=== PATIENT | male | born 2000 | race Hispanic/Latino ===

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

== ENCOUNTER 2018-01-10 00:10 | Inpatient (IN) | payer OTHER ==
[2018-01-10 00:11] VITALS: BMI 19.0
--- NOTE | 2018-01-10 00:42 | ED PDOC ---
HPI: Psych/Substance Abuse Time Seen by Provider: 01/10/18 00:16 Chief Complaint (Nursing): Psychiatric Evaluation Chief Complaint (Provider): crisis eval History Per: Patient, EMS History/Exam Limitations: clinical condition Onset/Duration Of Symptoms: Days, Waxing/Waning Current Symptoms Are (Timing): Still Present Additional Complaint(s): 17 y/o male brought in by EMS for crisis evaluation. Patient states he is here due to "depression and suicidal thoughts". Patient states he has a plan, but does not wish to say what it is. As per EMS, patient flagged down parking authority to ask them for help, who then called EMS. Denies homicidal ideations , hallucinations, acute medical complaints. Past Medical History Reviewed: Historical Data, Nursing Documentation, Vital Signs Vital Signs: Last Vital Signs Temp 97.8 F 01/10/18 00:12 Pulse 81 01/10/18 00:12 Resp 16 01/10/18 00:12 BP 112/76 01/10/18 00:12 Pulse Ox 99 01/10/18 00:12 - Medical History PMH: Anxiety, Depression Denies: Diabetes, Hepatitis, HIV, HTN, Seizures, Sexually Transmitted Disease - Surgical History Surgical History: No Surg Hx - Family History Family History: States: Unknown Family Hx - Immunization History Hx Tetanus Toxoid Vaccination: No - Home Medications Home Medications: Ambulatory Orders Medication Instructions Recorded ARIPiprazole [Abilify] 5 mg PO DAILY #30 tab 07/05/17 Amoxicillin/Clavulanate [Augmentin 1 tab PO BID #14 tab 07/05/17 875 MG-125 MG] Escitalopram [Lexapro] 5 mg PO DAILY #30 tab 07/05/17 Fluticasone Propionate [Flonase] 1 spr LISA BID #1 bottle 07/05/17 Methylprednisolone [Medrol Dose 4 mg PO DAILY #21 mg 07/05/17 Pack (21 tabs)] Ibuprofen [Motrin] 600 mg PO Q6H PRN #20 tab 12/11/17 Dicyclomine [Bentyl] 20 mg PO BID #30 tab 12/12/17 - Allergies Allergies/Adverse Reactions: Allergies Allergy/AdvReac Type Severity Reaction Status Date / Time No Known Allergies Allergy Verified 01/10/18 00:12 Review of Systems ROS Statement: Except As Marked, All Systems Reviewed And Found Negative Psych: Positive for: Depression, Suicidal ideation Physical Exam - Reviewed Nursing Documentation Reviewed: Yes Vital Signs Reviewed: Yes - Physical Exam Appears: Positive for: Well, Non-toxic, No Acute Distress Head Exam: Positive for: ATRAUMATIC, NORMAL INSPECTION, NORMOCEPHALIC Skin: Positive for: Normal Color Eye Exam: Positive for: Normal appearance ENT: Positive for: Normal ENT Inspection Cardiovascular/Chest: Positive for: Regular Rate, Rhythm Respiratory: Positive for: Normal Breath Sounds Gastrointestinal/Abdominal: Positive for: Normal Exam Back: Positive for: Normal Inspection Extremity: Positive for: Normal ROM Neurologic/Psych: Positive for: Alert, Oriented, Mood/Affect (flat/withdrawn) - Laboratory Results Result Diagrams: 01/10/18 01:07 01/10/18 01:07 - ECG O2 Sat by Pulse Oximetry: 99 - Progress ED Course And Treament: labs, urine, 1:1, crisis eval Patient evaluated by transit survey worker; to be admitted as per Dr. Dorman Medical Decision Making Medical Decision Making: Patient medically stable for psych admission Disposition - Clinical Impression Clinical Impression: Depression - Patient ED Disposition Is Patient to be Admitted: Yes - Disposition Disposition Time: 01:25 Condition: STABLE
[2018-01-10 01:21] LABS: BASO % 0.6 % (0.0-2.0); EOS # 0.2 K/uL (0.0-0.7); EOS % 2.7 % (0.0-4.0); HEMOGLOBIN 14.3 g/dL (12.0-18.0); LYMPH # 1.9 K/uL (1.0-4.3); LYMPH % 28.9 % (20.0-40.0); MEAN CELL VOLUME 84.3 fl (80.0-94.0); MEAN CORPUSCULAR HEMOGLOBIN 28.4 pg (27.0-31.0); MEAN CORPUSCULAR HGB CONC 33.7 g/dL (33.0-37.0); MEAN PLATELET VOLUME 7.1 fl (7.2-11.7); MONO # 0.5 K/uL (0.0-0.8); MONO % 7.3 % (0.0-10.0); NEUT % 60.5 % (50.0-75.0); RBC 5.03 Mil/uL (4.40-5.90); RED CELL DISTRIBUTION WIDTH 12.9 % (11.5-14.5); WHITE BLOOD COUNT 6.6 K/uL (4.8-10.8)
[2018-01-10 01:33] LABS: BLOOD UREA NITROGEN 21 mg/dl (9-20); CALCIUM 9.1 mg/dL (8.4-10.2); GFR AFRICAN-AMERICAN > 60; GFR NON-AFRICAN AMERICAN > 60
[2018-01-10 01:34] LABS: ALB/GLOB RATIO 1.3 (1.0-2.1); ALT/SGPT 38 U/L (21-72); AST/SGOT 21 U/L (17-59)
[2018-01-10 03:35] LABS: URINE BACTERIA RARE (<OCC); URINE BILIRUBIN NEGATIVE (NEGATIVE); URINE BLOOD NEGATIVE (NEGATIVE); URINE CLARITY CLOUDY (Clear); URINE COLOR YELLOW (YELLOW); URINE GLUCOSE (UA) NEG (Normal); URINE LEUKOCYTE ESTERASE NEG Leu/uL (Negative); URINE PROTEIN NEGATIVE (NEGATIVE); URINE UROBILINOGEN 0.2-1.0 mg/dL (0.2-1.0)
[2018-01-10 03:52] LABS: BARBITURATES, UR NEGATIVE (NEGATIVE); BENZODIAZEPINES, UR NEGATIVE (NEGATIVE); OPIATES, UR NEGATIVE (NEGATIVE); PHENCYCLIDINE, UR NEGATIVE (NEGATIVE)
[2018-01-10 04:18] VITALS: O2SAT 100
[2018-01-10] MEDS ORDERED: DiphenhydrAMINE 50 mg/ml Inj IM PRN (04:37)
[2018-01-10] MEDS ORDERED: Magnesium Hydroxide Susp 30 ml UD PO PRN (04:37)
[2018-01-10] MEDS ORDERED: Alum-Mag Hydrox-Simethicone Susp (30 mL) PO PRN (04:37)
--- NOTE | 2018-01-10 05:34 | PCM.BM ---
<Eusebia Mcdowell - Last Filed: 01/10/18 05:32> Treatment Plan Problems - Problems identified on initial assessmt Hopelessness/Helplessness Date Initiated: 01/10/18 Time Initiated: 04:30 Assessment reference: NA Treatment assets and liabiliti Patient Assests: adapts well, self-reliant, ADL independent, good support system Patient Liabilities: relationship conflicts - Milieu Protocol Maintain good personal hygiene: daily Encourage regular showers, daily Remind patient to perform daily oral care, daily Assist patient to perform ADL's Maintain personal safety: every shift Educate patient to report safety concerns to staff, every shift Monitor environment for contraband/sharps Medication safety: Monitor for expected outcome, potential side effects: every shift, Assess barriers to learning: every shift, Assess readiness for medication education: every shift Family Contact Family involvement: Famliy/SO not involved <Kiersten Mack - Last Filed: 01/11/18 15:24> Treatment assets and liabiliti Patient Assests: adapts well, cooperative, self-reliant, ADL independent, physically healthy, good support system, negotiates basic needs Patient Liabilities: relationship conflicts, other (poor insight, hx of noncompliance) Family Contact Family involvement: Family/SO is involved Family contact: Patient declines to allow family contact at present - Outside Agency Agency 1 Care involvment: Other (will refer upon stabilization for OPS) Agency contact name: [facility] Agency contact number: [phone] - Goals for Treatment Patient goals for treatment: Patient to continue stabilization on 3NP through medication management and group/supportive therapy to address sxs of depression and eliminate SI. Patient to be encouraged to attend groups regularly to promote self-awareness, compliance and improve insight, organization, coping skills and self-esteem. Patient to be provided with referral for appropriate level of aftercare to reduce risk of future hospitalizations and ensure safety in the community. Discharge/Continuing Care - Education Needs Education Needs: Patient Medication, Patient Coping Skills, Patient Anger Management skills, Patient Community resources, Patient Aftercare Safety Plan - Discharge Discharge Criteria: Tolerates medication w/o severe side effects, Free of Suicidal thoughts, Normal sleep pattern, Ability to care for self, Reduction of target symptoms Discharge to:: Home, With Family, Other (OPS) <Javier Rice - Last Filed: 01/12/18 11:47> Discharge/Continuing Care - Treatment Team Participation Patient/Family/SO Statement: 01/12/18 11:47 Pt was seen in treatment team and reported that he was "fine." Dr. Quinones explained to pt that she is switching his Abilify to Wellbutrin and Risperdal as pt reported side effects. Pt admitted to still experiencing hearing "sounds" that were not real. Pt spoke to team with his blanket covering his mouth and it was difficult to hear pt at times. Pt gave limited responses preventing team to properly evaluate pt's mood and level of insight. It was also decided and discussed that pt would be re-referred to [facility] for outpatient treatment. Discussed with Family/SO: No Was Patient/Family/SO present at Treatment Team Meeting: Yes <Naima Quinones - Last Filed: 01/19/18 09:10> - Diagnosis (1) Depression Status: Acute Interventions: psychotherapy, pharmacotherapy 01/19/18 09:10
[2018-01-10 08:39] LABS: T4 8.38 ug/dl (5.5-11.0)
--- NOTE | 2018-01-10 14:22 | CP.PCM.CON ---
History of Present Illness - History of Present Illness History of Present Illness: Reason for Consult: per hospital protocol HPI: 17 year old male no past medical history is admitted to psych for depression. No other complaints at this time. HD stable. ROS: per hPI all other systems reviewed and neg PMSH: denies FH: denies SH: denies tobacco etoh, ivdu Past Patient History - Tetanus Immunizations Tetanus Immunization: Unknown - Past Social History Smoking Status: Never Smoked - CARDIAC Hx Cardiac Disorders: No - PULMONARY Hx Respiratory Disorders: No Hx Tuberculosis: No - NEUROLOGICAL Hx Neurological Disorder: No Hx Seizures: No - HEENT Hx HEENT Problems: No - RENAL Hx Chronic Kidney Disease: No - ENDOCRINE/METABOLIC Hx Endocrine Disorders: No - HEMATOLOGICAL/ONCOLOGICAL Hx Blood Disorders: No Hx Human Immunodeficiency Virus (HIV): No - INTEGUMENTARY Hx Dermatological Problems: No - MUSCULOSKELETAL/RHEUMATOLOGICAL Hx Musculoskeletal Disorders: No Hx Falls: No - GASTROINTESTINAL Hx Gastrointestinal Disorders: No - GENITOURINARY/GYNECOLOGICAL Hx Genitourinary Disorders: No Hx Sexually Transmitted Disorders: No - PSYCHIATRIC Hx Anxiety: Yes Hx Depression: Yes Hx Substance Use: No - SURGICAL HISTORY Hx Surgeries: No - ANESTHESIA Hx Anesthesia: No Meds Allergies/Adverse Reactions: Allergies Allergy/AdvReac Type Severity Reaction Status Date / Time No Known Allergies Allergy Verified 01/10/18 00:12 - Medications Medications: Current Medications Acetaminophen (Tylenol 325mg Tab) 650 mg PO Q4 PRN PRN Reason: Pain, moderate (4-7) Al Hydrox/Mg Hydrox/Simethicone (Maalox Plus 30 Ml) 30 ml PO Q4 PRN PRN Reason: Dyspepsia Diphenhydramine HCl (Benadryl) 50 mg IM Q6 PRN PRN Reason: Extrapyramidal S/S Unable PO Diphenhydramine HCl (Benadryl) 50 mg PO Q6 PRN PRN Reason: Extrapyramidal Symptoms Haloperidol (Haldol) 5 mg PO Q4 PRN PRN Reason: Agitation Haloperidol Lactate (Haldol) 5 mg IM Q4 PRN PRN Reason: Agitation, Unable to Take PO Lorazepam (Ativan) 2 mg IM Q4 PRN PRN Reason: Anxiety/Agitation,Unable PO Lorazepam (Ativan) 2 mg PO Q4 PRN PRN Reason: Anxiety/Agitation Magnesium Hydroxide (Milk Of Magnesia) 30 ml PO HS PRN PRN Reason: Constipation Physical Exam - Constitutional Appears: Non-toxic, No Acute Distress - Head Exam Head Exam: ATRAUMATIC, NORMOCEPHALIC - Eye Exam Eye Exam: EOMI, Normal appearance, PERRL - ENT Exam ENT Exam: Mucous Membranes Moist, Normal Exam - Neck Exam Neck exam: Positive for: Normal Inspection - Respiratory Exam Respiratory Exam: Clear to Auscultation Bilateral, NORMAL BREATHING PATTERN - Cardiovascular Exam Cardiovascular Exam: REGULAR RHYTHM, +S1, +S2 - GI/Abdominal Exam GI & Abdominal Exam: Normal Bowel Sounds, Soft. absent: Tenderness - Extremities Exam Extremities exam: Positive for: normal capillary refill, normal inspection - Back Exam Back exam: absent: CVA tenderness (L), CVA tenderness (R) - Neurological Exam Neurological exam: Alert, Oriented x3 - Psychiatric Exam Psychiatric exam: Normal Affect, Normal Mood - Skin Skin Exam: Dry, Warm Results - Vital Signs Recent Vital Signs: Last Vital Signs Temp 97.7 F 01/10/18 09:00 Pulse 71 01/10/18 09:00 Resp 18 01/10/18 09:00 BP 122/72 01/10/18 09:00 Pulse Ox 100 01/10/18 04:15 - Labs Result Diagrams: 01/10/18 01:07 01/10/18 01:07 Labs: Laboratory Results - last 24 hr 01/10/18 01/10/18 01/10/18 01:07 01:07 03:05 WBC 6.6 RBC 5.03 Hgb 14.3 Hct 42.4 MCV 84.3 MCH 28.4 MCHC 33.7 RDW 12.9 Plt Count 292 MPV 7.1 L Neut % (Auto) 60.5 Lymph % (Auto) 28.9 [place] % (Auto) 7.3 Eos % (Auto) 2.7 Baso % (Auto) 0.6 Neut # (Auto) 4.0 Lymph # (Auto) 1.9 [place] # (Auto) 0.5 Eos # (Auto) 0.2 Baso # (Auto) 0.0 Sodium 143 Potassium 4.0 Chloride 99 Carbon Dioxide 29 Anion Gap 19 BUN 21 H Creatinine 0.8 Est GFR ( Amer) > 60 Est GFR (Non-Af Amer) > 60 Random Glucose 87 Hemoglobin A1c Calcium 9.1 Total Bilirubin 0.3 AST 21 ALT 38 Alkaline Phosphatase 68 Total Protein 7.2 Albumin 4.0 Globulin 3.2 Albumin/Globulin Ratio 1.3 Triglycerides Cholesterol LDL Cholesterol Direct HDL Cholesterol Thyroxine (T4) TSH 3rd Generation Urine Color Urine Clarity Urine pH Ur Specific [place] Urine Protein Urine Glucose (UA) Urine Ketones Urine Blood Urine Nitrate Urine Bilirubin Urine Urobilinogen Ur Leukocyte Esterase Urine RBC (Auto) Urine Microscopic WBC Urine Bacteria Urine Opiates Screen Negative Urine Methadone Screen Negative Ur Barbiturates Screen Negative Ur Phencyclidine Scrn Negative Ur Amphetamines Screen Negative U Benzodiazepines Scrn Negative U Oth Cocaine Metabols Negative U Cannabinoids Screen Negative Alcohol, Quantitative < 10 01/10/18 01/10/18 01/10/18 03:05 07:44 07:44 WBC RBC Hgb Hct MCV MCH MCHC RDW Plt Count MPV Neut % (Auto) Lymph % (Auto) [place] % (Auto) Eos % (Auto) Baso % (Auto) Neut # (Auto) Lymph # (Auto) [place] # (Auto) Eos # (Auto) Baso # (Auto) Sodium Potassium Chloride Carbon Dioxide Anion Gap BUN Creatinine Est GFR ( Amer) Est GFR (Non-Af Amer) Random Glucose Hemoglobin A1c 5.7 Calcium Total Bilirubin AST ALT Alkaline Phosphatase Total Protein Albumin Globulin Albumin/Globulin Ratio Triglycerides 108 D Cholesterol 102 LDL Cholesterol Direct 49 HDL Cholesterol 32 Thyroxine (T4) 8.38 TSH 3rd Generation 0.64 Urine Color Yellow Urine Clarity Cloudy Urine pH 6.0 Ur Specific [place] 1.025 Urine Protein Negative Urine Glucose (UA) Neg Urine Ketones Negative Urine Blood Negative Urine Nitrate Negative Urine Bilirubin Negative Urine Urobilinogen 0.2-1.0 Ur Leukocyte Esterase Neg Urine RBC (Auto) 2 Urine Microscopic WBC 2 Urine Bacteria Rare Urine Opiates Screen Urine Methadone Screen Ur Barbiturates Screen Ur Phencyclidine Scrn Ur Amphetamines Screen U Benzodiazepines Scrn U Oth Cocaine Metabols U Cannabinoids Screen Alcohol, Quantitative Assessment & Plan - Assessment and Plan (Free Text) Plan: 17 year old no pMH admitted to psych for depression. Depression management per psych
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
--- NOTE | 2018-01-11 13:19 | PCM.PYCHPN ---
Psychiatric Progress Note - Psychiatric Progress Note Patient seen today, length of contact: pt evaluated discussed with team chart reviewed Patient Chief Complaint: I have no motivation and I do not see hope in the future Problems Identified/Issues Discussed: pt evaluated , presenting with depressed mood and affect, anhedonia , low energy , continues to report hopelessness . inabaility to plan for the future or anticipate anything positive , CBT provided, pt indicated that he always had problem planning with the possibility of executive function problems and learning disabilities , pt had to be out of school at age 13, discussed starting wellbutrin to help with mood and concentration pt indicated he hears voices of police cars for the past month , denied any command hallucinations, stated feeling dizzy with abilify discussed changing to risperidone denied active suicidal ideation on unit denied homicidal ideation Medical Problems: multiple inpatient hospitalizations, history of non compliance DSM 5 Symptoms Update: major depression learning disabilities borderline personality disorder Medication Change: Yes (start wellbutrin) Medical Record Reviewed: Yes Mental Status Examination - Cognitive Function Orientation: Person, Place Memory: Intact Attention: Poor Concentration: Poor Association: WNL Fund of Knowledge: Poor Decription of patient's judgement and insights: poor insight and judgment - Mood Mood: Depressed, Anxious - Affect Affect: Constricted, Depressed - Speech Speech: Soft - Formal Thought Process Formal Thought Process: Circumstantial Psychotic Thoughts and Behaviors: reported hearing noises, denied command hallucinations - Suicidal Ideation Suicidal Ideation: No - Homicidal Ideation Homicidal Ideation: No Goal/Treatment Plan - Goal/Treatment Plan Need for Continued Stay: Severe depression anxiety, Discharge may exacerbated symptoms Progress Toward Problem(s) and Goals/Treatment Plan: discontinue abilify , start risperidone 00.5mg qhs, start wellbutrin 75mg daily CBT group and supportive therapy
[2018-01-11] MEDS: Risperidone M tab 0.5MG PO SCH (21:12)
--- NOTE | 2018-01-12 13:35 | PCM.PYCHPN ---
Psychiatric Progress Note - Psychiatric Progress Note Patient seen today, length of contact: pt evaluated discussed with team chart reviewed Patient Chief Complaint: I continue to feel down Problems Identified/Issues Discussed: pt evaluated with treatment team, continues to feel down depressed, anhedonic, poor motivation discussed with pt increasing dose of wellbutrin, reported no current side effects after changing abilify to risperidone , pt reported decrease in the auditory hallucinations to 5/10 denied active suicidal ideation on unit denied homicidal ideation Medical Problems: multiple inpatient hospitalizations, history of non compliance DSM 5 Symptoms Update: major depression borderline personality traits Medication Change: Yes (increase wellbutrin) Medical Record Reviewed: Yes Mental Status Examination - Cognitive Function Orientation: Person, Place Memory: Intact Attention: Poor Concentration: Poor Association: WNL Fund of Knowledge: Poor Decription of patient's judgement and insights: poor insight and judgment - Mood Mood: Depressed, Anxious - Affect Affect: Constricted, Depressed - Speech Speech: Soft - Formal Thought Process Formal Thought Process: Circumstantial Psychotic Thoughts and Behaviors: reported hearing noises, denied command hallucinations - Suicidal Ideation Suicidal Ideation: No - Homicidal Ideation Homicidal Ideation: No Goal/Treatment Plan - Goal/Treatment Plan Need for Continued Stay: Severe depression anxiety, Discharge may exacerbated symptoms Progress Toward Problem(s) and Goals/Treatment Plan: continue risperidone 0.5mg qhs, increase wellbutrin 100mg daily CBT group and supportive therapy
[2018-01-12] MEDS: Risperidone M tab 0.5MG PO SCH (21:22)
--- NOTE | 2018-01-13 13:36 | PCM.PYCHPN ---
Psychiatric Progress Note - Psychiatric Progress Note Patient seen today, length of contact: pt evaluated discussed with team chart reviewed Patient Chief Complaint: I am trying to help myself Problems Identified/Issues Discussed: pt evaluated , continues to be guarded, with under productive soft speech , partial eye contact, when asked about suicidal ideation stated feeling safe in hospital but does not trust himself in the outside, discussed with pt gradual increase in dose of wellbutrin and risperidone, no reported current side effects of medications, reported partial clearing of the auditory hallucinations , Medical Problems: multiple inpatient hospitalizations, history of non compliance DSM 5 Symptoms Update: major depression borderline personality Medication Change: Yes (increase risperidone) Medical Record Reviewed: Yes Mental Status Examination - Cognitive Function Orientation: Person, Place Memory: Intact Attention: Poor Concentration: Poor Association: WNL Fund of Knowledge: Poor Decription of patient's judgement and insights: poor insight and judgment - Mood Mood: Depressed, Anxious - Affect Affect: Constricted, Depressed - Speech Speech: Soft - Formal Thought Process Formal Thought Process: Circumstantial Psychotic Thoughts and Behaviors: reported hearing noises, denied command hallucinations - Suicidal Ideation Suicidal Ideation: No - Homicidal Ideation Homicidal Ideation: No Goal/Treatment Plan - Goal/Treatment Plan Need for Continued Stay: Severe depression anxiety, Discharge may exacerbated symptoms Progress Toward Problem(s) and Goals/Treatment Plan: increase risperidone 1mg qhs, wellbutrin 100mg daily, will uptitrate gradually CBT group and supportive therapy
[2018-01-13] MEDS: Risperidone M tab 1 MG PO SCH (21:07)
--- NOTE | 2018-01-14 14:04 | PCM.PYCHPN ---
Psychiatric Progress Note - Psychiatric Progress Note Patient seen today, length of contact: pt evaluated discussed with team chart reviewed Patient Chief Complaint: I am feeling a little better Problems Identified/Issues Discussed: pt evaluated , reported partial mood improvement , affect continues to be constricted with under productive soft speech , partial eye contact, when asked about suicidal ideation stated feeling safe in hospital but does not trust himself in the outside, discussed with pt gradual increase in dose of wellbutrin and risperidone, no reported current side effects of medications, reported partial clearing of the auditory hallucinations , Medical Problems: multiple inpatient hospitalizations, history of non compliance DSM 5 Symptoms Update: major depression borderline personality disorder Medication Change: Yes (increase wellbutrin) Medical Record Reviewed: Yes Mental Status Examination - Cognitive Function Orientation: Person, Place Memory: Intact Attention: Poor Concentration: Poor Association: WNL Fund of Knowledge: Poor Decription of patient's judgement and insights: poor insight and judgment - Mood Mood: Depressed, Anxious - Affect Affect: Constricted, Depressed - Speech Speech: Soft - Formal Thought Process Formal Thought Process: Circumstantial Psychotic Thoughts and Behaviors: reported hearing noises, denied command hallucinations - Suicidal Ideation Suicidal Ideation: No - Homicidal Ideation Homicidal Ideation: No Goal/Treatment Plan - Goal/Treatment Plan Need for Continued Stay: Severe depression anxiety, Discharge may exacerbated symptoms Progress Toward Problem(s) and Goals/Treatment Plan: risperidone 1mg qhs, increase wellbutrin 150mg daily, CBT group and supportive therapy
[2018-01-14] MEDS: Risperidone M tab 1 MG PO SCH (21:11)
[2018-01-15] MEDS: buPROPion SR 150 MG TABLET PO SCH (08:53)
--- NOTE | 2018-01-15 11:50 | PCM.PYCHPN ---
Psychiatric Progress Note - Psychiatric Progress Note Patient seen today, length of contact: pt evaluated discussed with team chart reviewed Patient Chief Complaint: I still feel down but I am not thinking about suicide any more Problems Identified/Issues Discussed: pt evaluated , reported continues to feel down and relates that to the poor social support he has from his family and also his social skills and lack of friends, discussed with pt the need for therapy on discharge, no reported side effects of current medications pt reported complete clearing off of the auditory hallucinations , denied any current suicidal or homicidal ideation , Medical Problems: multiple inpatient hospitalizations, history of non compliance DSM 5 Symptoms Update: major depression severe with psychotic features borderline personality traits Medication Change: No Medical Record Reviewed: Yes Mental Status Examination - Cognitive Function Orientation: Person, Place Memory: Intact Attention: WNL Concentration: WNL Association: WNL Fund of Knowledge: Poor Decription of patient's judgement and insights: partial insight and poor judgment - Mood Mood: Depressed, Anxious - Affect Affect: Constricted, Depressed - Speech Speech: Soft - Formal Thought Process Formal Thought Process: Circumstantial Psychotic Thoughts and Behaviors: reported clearing off of the auditory hallucinations - Suicidal Ideation Suicidal Ideation: No - Homicidal Ideation Homicidal Ideation: No Goal/Treatment Plan - Goal/Treatment Plan Need for Continued Stay: Severe depression anxiety, Discharge may exacerbated symptoms Progress Toward Problem(s) and Goals/Treatment Plan: risperidone 1mg qhs, wellbutrin 150mg daily, CBT group and supportive therapy Estimated Date of D/C: 01/18/18
[2018-01-15] MEDS: Risperidone M tab 1 MG PO SCH (21:04)
[2018-01-16] MEDS: buPROPion SR 150 MG TABLET PO SCH (08:30)
--- NOTE | 2018-01-16 15:13 | PCM.PYCHPN ---
Psychiatric Progress Note - Psychiatric Progress Note Patient seen today, length of contact: pt evaluated discussed with team chart reviewed Patient Chief Complaint: I think I am less depressed Problems Identified/Issues Discussed: pt evaluated , feeling less depressed ,not thinking about suicide , pt continues to give any family information for collateral information refusing to involve family in his treatment , discussed with the need for therapy on discharge, no reported side effects of current medications pt reported complete clearing off of the auditory hallucinations , denied any current suicidal or homicidal ideation , Medical Problems: multiple inpatient hospitalizations, history of non compliance DSM 5 Symptoms Update: major depression borderline personality disorder Medication Change: No Medical Record Reviewed: Yes Mental Status Examination - Cognitive Function Orientation: Person, Place Memory: Intact Attention: WNL Concentration: WNL Association: WNL Fund of Knowledge: Poor Decription of patient's judgement and insights: partial insight and poor judgment - Mood Mood: Depressed, Anxious - Affect Affect: Constricted, Depressed - Speech Speech: Soft - Formal Thought Process Formal Thought Process: Circumstantial Psychotic Thoughts and Behaviors: reported clearing off of the auditory hallucinations - Suicidal Ideation Suicidal Ideation: No - Homicidal Ideation Homicidal Ideation: No Goal/Treatment Plan - Goal/Treatment Plan Need for Continued Stay: Severe depression anxiety, Discharge may exacerbated symptoms Progress Toward Problem(s) and Goals/Treatment Plan: risperidone 1mg qhs, wellbutrin 150mg daily, CBT group and supportive therapy Estimated Date of D/C: 01/18/18
[2018-01-16] MEDS: Risperidone M tab 1 MG PO SCH (21:44)
[2018-01-17] MEDS: buPROPion SR 150 MG TABLET PO SCH (08:53)
--- NOTE | 2018-01-17 14:37 | PCM.PYCHPN ---
Psychiatric Progress Note - Psychiatric Progress Note Patient seen today, length of contact: pt evaluated discussed with team chart reviewed Patient Chief Complaint: I want to go to community health Problems Identified/Issues Discussed: pt evaluated , reported feeling less depressed, , observed visible on the unit attending groups and interacting with other patients, no side effects reported with the increase in risperidone, discussed after care pt agreed to join 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 Medication Change: No Medical Record Reviewed: Yes Mental Status Examination - Cognitive Function Orientation: Person, Place Memory: Intact Attention: WNL Concentration: WNL Association: WNL Fund of Knowledge: Poor Decription of patient's judgement and insights: partial insight and poor judgment - Mood Mood: Anxious - Affect Affect: Constricted, Depressed - Speech Speech: Soft - Formal Thought Process Formal Thought Process: Circumstantial Psychotic Thoughts and Behaviors: reported clearing off of the auditory hallucinations - Suicidal Ideation Suicidal Ideation: No - Homicidal Ideation Homicidal Ideation: No Goal/Treatment Plan - Goal/Treatment Plan Need for Continued Stay: Severe depression anxiety, Discharge may exacerbated symptoms Progress Toward Problem(s) and Goals/Treatment Plan: risperidone 1mg qhs, wellbutrin 150mg daily, CBT group and supportive therapy Estimated Date of D/C: 01/18/18
[2018-01-17] MEDS: Risperidone M tab 1 MG PO SCH (21:00)
[2018-01-18] MEDS: buPROPion SR 150 MG TABLET PO SCH (09:23)
--- NOTE | 2018-01-18 15:44 | PCM.PYCHPN ---
Psychiatric Progress Note - Psychiatric Progress Note Patient seen today, length of contact: pt evaluated discussed with team chart reviewed Patient Chief Complaint: I AM BETTER TODAY NO SUICIDAL THOUGHTS Problems Identified/Issues Discussed: pt evaluated ,reported less depressed , brighter affect and spech more productive , observed visible on the unit attending groups and interacting with other patients, no side effects reported ,agreed to join [facility] , reported clearing off of the auditory hallucinations , denied any current suicidal or homicidal ideation , Medical Problems: multiple inpatient hospitalizations, history of non compliance DSM 5 Symptoms Update: major depression recurrent severe borderline personality disorder Medication Change: No Medical Record Reviewed: Yes Mental Status Examination - Cognitive Function Orientation: Person, Place Memory: Intact Attention: WNL Concentration: WNL Association: WNL Fund of Knowledge: Poor Decription of patient's judgement and insights: partial insight and poor judgment - Mood Mood: Anxious - Affect Affect: Constricted, Depressed - Speech Speech: Soft - Formal Thought Process Formal Thought Process: Circumstantial Psychotic Thoughts and Behaviors: reported clearing off of the auditory hallucinations - Suicidal Ideation Suicidal Ideation: No - Homicidal Ideation Homicidal Ideation: No Goal/Treatment Plan - Goal/Treatment Plan Need for Continued Stay: Severe depression anxiety, Discharge may exacerbated symptoms Progress Toward Problem(s) and Goals/Treatment Plan: risperidone 1mg qhs, wellbutrin 150mg daily, CBT group and supportive therapy Estimated Date of D/C: 01/19/18
[2018-01-18] MEDS: Risperidone M tab 1 MG PO SCH (21:19)
[2018-01-19 09:08] VITALS: BP 125/63; PULSE 90; RESP 20; TEMP 97.9
--- NOTE | 2018-01-19 10:07 | PCM.PYCHDC ---
Mental Status Examination - Mental Status Examination Orientation: Person, Place, Situation Memory: Intact Mood: Neutral Affect: Broad Speech: Appropriate Attention: WNL Concentration: WNL Association: WNL Fund of Knowledge: WNL Formal Thought Process: Circumstantial Description of patient's judgement and insight: partial insight and poor judgment Psychotic Thoughts and Behaviors: pt on discharge denied perceptual disturbances, non elicited Suicidal Ideation: No Current Homicidal Ideation?: No Discharge Summary - Discharge Note Reason for Hospitalization: pt is 17 ys old male with previous diagnosis of depression, borderline personality disorder, at least two previous inpatient hospitalizations, pt non compliant with medications or follow up, pt reported has been feeling increasingly depressed, guarded and evasive in reference to the cause , indicating it is due to family problems, on day he presented to ER he started experiencing suicidal ideation with plan to jump off the bridge , pt has history of cutting self superficially as a teen ager and in last admission on on the unit pt is guarded evasive, presenting as internally preoccupied , paranoid, depressed anhedonic, low energy , reporting passive suicidal ideation without active plan on unit, denied current thoughts of self mutilation, denied homicidal ideation, denied command hallucinations Consultations:: List each consultation separately and include: 1. Reason for request. 2. Findings. 3. Follow-up Summary of Hospital Course include:: 1. Description of specific treatment plan utilized for patients during their course of treatmen. 2. Summarize the time- course for resolution of acute symptoms and/or regressed behaviors. 3. Describe issues identified and worked on during hospitalization. 4. Describe medication utilized. 5. Describe medical problems identified and treated. 6. Reassessment of suicide risk Summary of Hospital Course: pt on admission was started on wellbutrin , it was uptitrated to 150mg daily for depression and concentration pt was started on risperidone 1mg qhs pt gradually presented with brighter affect mood less depressed. 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
== END 2018-01-19 15:10 | disposition home or self-care (01) | DRG 430 ==
LOC: H.ER 00:10 → H.ERHOLD 01:22 → H.PSYCH 04:21
PROVIDERS: ADMIT Psychiatry & Neurology Psychiatry; ATTEND Psychiatry & Neurology Psychiatry
PROC: GZHZZZZ Group Psychotherapy (ICD-10-PCS; principal; 2018-01-10)
PROC: GZ58ZZZ Individual Psychotherapy, Cognitive-Behavioral (ICD-10-PCS; 2018-01-10)
PROC: GZ56ZZZ Individual Psychotherapy, Supportive (ICD-10-PCS; 2018-01-10)
DX: F33.3 Major depressive disorder, recurrent, severe with psychotic symptoms (principal); R45.851 Suicidal ideations; F60.3 Borderline personality disorder; Z91.14 Patient's other noncompliance with medication regimen; Z91.19 Patient's noncompliance with other medical treatment and regimen; F81.9 Developmental disorder of scholastic skills, unspecified

== ENCOUNTER 2018-03-09 12:30 | Inpatient (IN) | payer MEDICAID, OTHER ==
[2018-03-09 12:35] VITALS: BMI 26.1
[2018-03-09 14:15] LABS: BASO % 0.7 % (0.0-2.0); EOS # 0.2 K/uL (0.0-0.7); EOS % 2.9 % (0.0-4.0); HEMOGLOBIN 13.8 g/dL (12.0-18.0); LYMPH # 2.4 K/uL (1.0-4.3); LYMPH % 42.1 % (20.0-40.0); MEAN CELL VOLUME 84.6 fl (80.0-94.0); MEAN CORPUSCULAR HEMOGLOBIN 29.4 pg (27.0-31.0); MEAN CORPUSCULAR HGB CONC 34.7 g/dL (33.0-37.0); MEAN PLATELET VOLUME 7.2 fl (7.2-11.7); MONO # 0.6 K/uL (0.0-0.8); MONO % 10.2 % (0.0-10.0); NEUT # 2.5 K/uL (1.8-7.0); NEUT % 44.1 % (50.0-75.0); NRBC % 0.1 % (0.0-0.0); RBC 4.7 Mil/uL (4.40-5.90); RED CELL DISTRIBUTION WIDTH 13.4 % (11.5-14.5); WHITE BLOOD COUNT 5.7 K/uL (4.8-10.8)
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
[2018-03-09 14:38] LABS: ALB/GLOB RATIO 1.6 (1.0-2.1); ALBUMIN 3.8 g/dL (3.5-5.0); ALT/SGPT 23 U/L (21-72); AST/SGOT 17 U/L (17-59); BLOOD UREA NITROGEN 13 mg/dl (9-20); CALCIUM 8.8 mg/dL (8.4-10.2); GFR NON-AFRICAN AMERICAN > 60
[2018-03-09] MEDS ORDERED: Bacitracin OINT 15GM TOP STA (14:56)
[2018-03-09] MEDS ORDERED: Bacitracin 500 Units/gm Oint Foilpak UD ONE (15:19)
[2018-03-09 15:30] LABS: URINE BILIRUBIN NEGATIVE (NEGATIVE); URINE BLOOD NEGATIVE (NEGATIVE); URINE CLARITY CLEAR (Clear); URINE COLOR STRAW (YELLOW); URINE GLUCOSE (UA) NEG (Normal); URINE LEUKOCYTE ESTERASE NEG Leu/uL (Negative); URINE PROTEIN NEGATIVE (NEGATIVE); URINE UROBILINOGEN 0.2-1.0 mg/dL (0.2-1.0)
[2018-03-09 15:59] LABS: BARBITURATES, UR NEGATIVE (NEGATIVE); BENZODIAZEPINES, UR NEGATIVE (NEGATIVE); OPIATES, UR NEGATIVE (NEGATIVE); PHENCYCLIDINE, UR NEGATIVE (NEGATIVE)
[2018-03-09 18:18] VITALS: O2SAT 99
[2018-03-09] MEDS ORDERED: Magnesium Hydroxide Susp 30 ml UD PO PRN (20:23)
[2018-03-09] MEDS ORDERED: Alum-Mag Hydrox-Simethicone Susp (30 mL) PO PRN (20:23)
[2018-03-09] MEDS ORDERED: DiphenhydrAMINE 50 mg/ml Inj IM PRN (20:23)
--- NOTE | 2018-03-09 20:42 | PCM.BM ---
<Shilpa Cox - Last Filed: 03/09/18 20:40> Treatment Plan Problems - Problems identified on initial assessmt Self harm Date Initiated: 03/09/18 Time Initiated: 20:40 Assessment reference: NA Status: Active Medication Nonadherence Date Initiated: 03/09/18 Time Initiated: 20:41 Assessment reference: NA Status: Active Ineffective copoing Date Initiated: 03/09/18 Time Initiated: 20:41 Assessment reference: NA Status: Active Treatment assets and liabiliti Patient Assests: adapts well, cooperative, ADL independent, physically healthy, negotiates basic needs Patient Liabilities: relationship conflicts, other (non compliance with meds) - Milieu Protocol Maintain good personal hygiene: daily Encourage regular showers, every shift Remind patient to perform daily oral care, every shift Assist patient to perform ADL's Conduct patient checks and document Observation sheet: Q15 minutes Maintain personal safety: every shift Educate patient to report safety concerns to staff, every shift Monitor environment for contraband/sharps Medication safety: Monitor for expected outcome, potential side effects: every shift, Assess barriers to learning: every shift, Assess readiness for medication education: every shift <Javier Rice - Last Filed: 03/11/18 19:21> Family Contact Family involvement: Family/SO is involved Family contact: Patient declines to allow family contact at present Family contact name: Pt denied. - Goals for Treatment Patient goals for treatment: Pt was unable to identify any goals for treatment at this time. Discharge/Continuing Care - Education Needs Education Needs: Patient Medication, Patient Diagnosis/Disease Process, Patient Coping Skills, Patient Community resources, Patient Aftercare Safety Plan - Discharge Discharge Criteria: Tolerates medication w/o severe side effects, Free of Suicidal thoughts, Ability to care for self, Reduction of target symptoms Discharge to:: Home, With Family - Treatment Team Participation Discussed with Family/SO: No <Kiersten Mack - Last Filed: 03/12/18 15:40> Discharge/Continuing Care - Treatment Team Participation Patient/Family/SO Statement: 03/12/18 15:40 Patient invited to tx team this morning to discuss precursors to hospitalization , progress on 3NP and tx goals. Pt. reported noncompliance with PHP referral secondary to father refusing to sign proof of residence needed to finalize [facility] care. Patient perseverating on Borderline Line Personality traits discussed during prior hospitalization. Importance of compliance with outpatient therapy/medication management for improvement of coping skills and insight emphasized. Pt. presents as help-rejecting and is minimally receptive to feedback. Affect incongruent to mood as evidenced by patient smiling and laughing while discussing sxs of depression and self-injurious behaviors leading to admission. Speech is often mumbled; patient asked multiple times to move hand away from mouth so staff could understand information being given/ emotions being expressed. Thought process is circumstantial and perseverative. Medication management discussed at length. Pt. ambivalent regarding providing consent for father and aftercare. Was Patient/Family/SO present at Treatment Team Meeting: Yes
--- NOTE | 2018-03-10 09:21 | PCM.PSYCH ---
Initial Psychiatric Evaluation - Initial Psychiatric Evaluation Type of Admission: Voluntary Chief Complaint (in patient's own words): i dont want attention Patient's Reaction to Hospitalization: pt is upset History of Present Illness and Precipitating Events: This is the 3rd admission for this 17 yr old male with h/o depression and borderline pesonality and was recently d/c from the unit and has been admitted because of suicidal ideation.pt also cut his wrist and called 911 because hecwas having suicidal ideation after argument with the father. Current Medications: Active Medications Generic Name Dose Route Start Last Admin Trade Name Freq PRN Reason Stop Dose Admin Acetaminophen 650 mg 03/09/18 20:23 Tylenol 325mg Tab PO Q4 PRN Pain, moderate (4-7) Al Hydrox/Mg Hydrox/Simethicone 30 ml 03/09/18 20:23 Maalox Plus 30 Ml PO Q4 PRN Dyspepsia Diphenhydramine HCl 50 mg 03/09/18 20:23 Benadryl IM Q6 PRN Extrapyramidal S/S Unable PO Diphenhydramine HCl 50 mg 03/09/18 20:23 Benadryl PO Q6 PRN Extrapyramidal Symptoms Haloperidol 5 mg 03/09/18 20:23 Haldol PO Q4 PRN Agitation Haloperidol Lactate 5 mg 03/09/18 20:23 Haldol IM Q4 PRN Agitation, Unable to Take PO Magnesium Hydroxide 30 ml 03/09/18 20:23 Milk Of Magnesia PO HS PRN Constipation Past Psychiatric History - Past Psychiatric History Previous Treatment History: Inpatient At [facility]: [employer] Nature of Treatment: depression. History of Abuse: denies History of Family Illness: denies Pertinent Medical Hx (Current Medical&Sleep Prob, Allergies): Allergies Allergy/AdvReac Type Severity Reaction Status Date / Time No Known Allergies Allergy Verified 03/09/18 12:52 Escitalopram [Lexapro] 20 mg PO DAILY 30 Days #30 tab 02/14/18 traZODone [Desyrel] 50 mg PO HS 30 Days #30 tab 02/14/18 Review of Systems - Review of Systems All systems: reviewed and no additional remarkable complaints except Mental Status Examination - Personal Presentation Personal Presentation: Looks stated age - Affect Affect: Constricted - Motor Activity Motor Activity: Calm - Reliability in Providing Information Reliability in Providing Information: Fair - Cognitive Functions Orientation: Person, Place, Situation Attention/Concentration: Easily distracted Estimate of Intelligence: Average Judgement: Imparied, as evidence by: Poor judgement, Imparied, as evidence by: Lack of insight into illness Memory: Recent intact, as evidence by: Ability to recall events of the day, Remote intact, as evidenced by: Ability to recall historical events - Risk Risk: Self-mutilation, Diminished functioning - Strength & Assets Inventory Strength & Assets Inventory: Family support DSM 5 DX - DSM 5 DSM 5 Diagnosis: major depression. borderline personality disorder - Recommended/Plan of Treatment Treatment Recommendations and Plan of Treatment: will start pt on trileptal 150 mg bid and stabilize the pt and engage pt in therapy .carla start wellbutrin sr 100 mg daily . will engage pt in therapy and groups.
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
--- NOTE | 2018-03-11 12:25 | PCM.PYCHPN ---
Psychiatric Progress Note - Psychiatric Progress Note Patient Chief Complaint: i dont want attention Mental Status Examination - Cognitive Function Orientation: Person, Place, Situation - Affect Affect: Constricted - Homicidal Ideation Homicidal Ideation: No Goal/Treatment Plan - Goal/Treatment Plan Progress Toward Problem(s) and Goals/Treatment Plan: will start pt on trileptal 150 mg bid and stabilize the pt and engage pt in therapy .carla start wellbutrin sr 100 mg daily . will engage pt in therapy and groups.
--- NOTE | 2018-03-12 14:49 | PCM.PYCHPN ---
Psychiatric Progress Note - Psychiatric Progress Note Patient seen today, length of contact: pt evaluated discussed with team chart reviewed Patient Chief Complaint: I was unable to finish my insurance papers Problems Identified/Issues Discussed: pt evaluated with treatment team, ,poor eye contact, speech under productive,, depressed mood and affect, patient reported hurting himself , cutting his wrist superficially due to conflict with father, discussed with patient more healthy coping skills with stress, discussed the need to follow up with intensive outpatient therapy on discharge, pt continues to have limited insight into his illness, no reported side effects of trileptal denied any current thoughts of self harm , denied suicidal or homicidal thoughts denied perceptual disturbances DSM 5 Symptoms Update: borderline personality disorder impulse control disorder s Medication Change: No Medical Record Reviewed: Yes Mental Status Examination - Cognitive Function Orientation: Person, Place, Situation Attention: WNL Concentration: Poor Association: WNL Fund of Knowledge: WNL Decription of patient's judgement and insights: p[oor insight and judgment - Mood Mood: Depressed - Affect Affect: Constricted - Speech Speech: Soft Additional comments: underproductive - Formal Thought Process Formal Thought Process: Circumstantial Psychotic Thoughts and Behaviors: pt denied perceptual disturbances - Suicidal Ideation Suicidal Ideation: No - Homicidal Ideation Homicidal Ideation: No Goal/Treatment Plan - Goal/Treatment Plan Need for Continued Stay: Severe depression anxiety, Discharge may exacerbated symptoms, Failed transitioning Progress Toward Problem(s) and Goals/Treatment Plan: continue wellbutrin 150mg trileptal 150mg bid, increase gradually CBT group and supportive therapy Estimated Date of D/C: 03/16/18
--- NOTE | 2018-03-13 12:16 | PCM.PYCHPN ---
Psychiatric Progress Note - Psychiatric Progress Note Patient seen today, length of contact: pt evaluated discussed with team chart reviewed Patient Chief Complaint: I need help to start the after care Problems Identified/Issues Discussed: pt evaluated , limited eye contact with the undersigned, under productive speech , limited insight into illness , continues to express passive thoughts of self harm reporting if on the outside he continues to have thoughts to hurt himself due to being frustrated with his social life, discussed with pt better coping skills pt observed on the unit however selectively interactive with other patients, playing chess, no changes in sleep or appetite denied side effects of medications , denied suicidal or homicidal thoughts denied perceptual disturbances 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 borderline personality disorder Medication Change: Yes (increase wellbutrin) Medical Record Reviewed: Yes Mental Status Examination - Cognitive Function Orientation: Person, Place, Situation Attention: WNL Concentration: Poor Association: WNL Fund of Knowledge: WNL Decription of patient's judgement and insights: p[oor insight and judgment - Mood Mood: Depressed - Affect Affect: Constricted - Speech Speech: Soft - Formal Thought Process Formal Thought Process: Circumstantial Psychotic Thoughts and Behaviors: pt denied perceptual disturbances - Suicidal Ideation Suicidal Ideation: No - Homicidal Ideation Homicidal Ideation: No Goal/Treatment Plan - Goal/Treatment Plan Need for Continued Stay: Severe depression anxiety, Discharge may exacerbated symptoms, Failed transitioning Progress Toward Problem(s) and Goals/Treatment Plan: increase wellbutrin SR 150mg DISCONTINUE trileptal CBT group and supportive therapy Estimated Date of D/C: 03/16/18
[2018-03-13 16:57] VITALS: RESP 18
[2018-03-14] MEDS: buPROPion SR 150 MG TABLET PO SCH (09:26)
--- NOTE | 2018-03-14 15:49 | PCM.PYCHPN ---
Psychiatric Progress Note - Psychiatric Progress Note Patient seen today, length of contact: pt evaluated discussed with team chart reviewed Patient Chief Complaint: I am still depressed Problems Identified/Issues Discussed: pt evaluated , continues to report depressed mood, limited eye contact with the undersigned, under productive speech, limited insight into illness ,pt denied any current active thoughts of self harm, denied side effects of medications, observed communicating with other patients, attending groups, no reported changes in sleep or appetite , denied suicidal or homicidal thoughts denied perceptual disturbances DSM 5 Symptoms Update: borderline personality disorder Medication Change: No Medical Record Reviewed: Yes Mental Status Examination - Cognitive Function Orientation: Person, Place, Situation Attention: WNL Concentration: Poor Association: WNL Fund of Knowledge: WNL Decription of patient's judgement and insights: p[oor insight and judgment - Mood Mood: Depressed - Affect Affect: Constricted - Speech Speech: Soft - Formal Thought Process Formal Thought Process: Circumstantial Psychotic Thoughts and Behaviors: pt denied perceptual disturbances - Suicidal Ideation Suicidal Ideation: No - Homicidal Ideation Homicidal Ideation: No Goal/Treatment Plan - Goal/Treatment Plan Need for Continued Stay: Severe depression anxiety, Discharge may exacerbated symptoms, Failed transitioning Progress Toward Problem(s) and Goals/Treatment Plan: i wellbutrin SR 150mg CBT group and supportive therapy Estimated Date of D/C: 03/16/18
[2018-03-15] MEDS: buPROPion SR 150 MG TABLET PO SCH (08:42)
--- NOTE | 2018-03-15 15:07 | PCM.PYCHPN ---
Psychiatric Progress Note - Psychiatric Progress Note Patient seen today, length of contact: pt evaluated discussed with team chart reviewed Patient Chief Complaint: I am better Problems Identified/Issues Discussed: pt evaluated ,reported mood less depressed ,pt denied any current active thoughts of self harm, denied side effects of medications, observed communicating with other patients, attending groups, no reported changes in sleep or appetite , denied suicidal or homicidal thoughts denied perceptual disturbances DSM 5 Symptoms Update: borderline personality disorder asperger spectrum Medication Change: No Medical Record Reviewed: Yes Mental Status Examination - Cognitive Function Orientation: Person, Place, Situation Attention: WNL Concentration: Poor Association: WNL Fund of Knowledge: WNL Decription of patient's judgement and insights: p[oor insight and judgment - Mood Mood: Depressed - Affect Affect: Constricted - Speech Speech: Soft - Formal Thought Process Formal Thought Process: Circumstantial Psychotic Thoughts and Behaviors: pt denied perceptual disturbances - Suicidal Ideation Suicidal Ideation: No - Homicidal Ideation Homicidal Ideation: No Goal/Treatment Plan - Goal/Treatment Plan Need for Continued Stay: Severe depression anxiety, Discharge may exacerbated symptoms, Failed transitioning Progress Toward Problem(s) and Goals/Treatment Plan: i wellbutrin SR 150mg CBT group and supportive therapy referral to [facility] on discharge Estimated Date of D/C: 03/16/18
[2018-03-16] MEDS: buPROPion SR 150 MG TABLET PO SCH (08:37)
[2018-03-16 08:39] VITALS: BP 118/69; PULSE 86; TEMP 98.1
--- NOTE | 2018-03-16 13:13 | PCM.PYCHDC ---
Mental Status Examination - Mental Status Examination Orientation: Person, Place, Situation Memory: Intact Mood: Neutral Affect: Broad Speech: Appropriate Attention: WNL Concentration: WNL Association: WNL Fund of Knowledge: WNL Formal Thought Process: Circumstantial Description of patient's judgement and insight: partial insight and poor judgment Psychotic Thoughts and Behaviors: pt denied perceptual disturbances, non ellicited Suicidal Ideation: No Current Homicidal Ideation?: No Discharge Summary - Discharge Note Reason for Hospitalization: This is the 3rd admission for this 17 yr old male with h/o depression and borderline pesonality and was recently d/c from the unit and has been admitted because of suicidal ideation.pt also cut his wrist and called 911 because hecwas having suicidal ideation after argument with the father. Psychiatric History (includes Medical, Family, Personal Hx): depression. Consultations:: List each consultation separately and include: 1. Reason for request. 2. Findings. 3. Follow-up Summary of Hospital Course include:: 1. Description of specific treatment plan utilized for patients during their course of treatmen. 2. Summarize the time- course for resolution of acute symptoms and/or regressed behaviors. 3. Describe issues identified and worked on during hospitalization. 4. Describe medication utilized. 5. Describe medical problems identified and treated. 6. Reassessment of suicide risk Summary of Hospital Course: pt on admission was started on wellbutin, for depression., it was uptitrated to 150mg daily pt was provided with CBT discussing coping skills and developing more healthy coping skills to deal with stress rather than self hurt pt was able to verbalize better coping skills pt attended groups, participated in treatment was compliant with medications, no reported side effects pt had good appetite and sleep, socialized with other patients, on discharge had bright affect, denied suicidal or homicidal ideation, denied perceptual disturbances , at current mental status denied any thoughts of self harm - Final Diagnosis (DSM 5) Condition upon Discharge: GUARDED DSM 5: borderline personality disorder autistic spectrum disorder Disposition: HOME/ ROUTINE Follow-up Treatment Plan: i wellbutrin SR 150mg CBT group and supportive therapy referral to [facility] on discharge Prescriptions/Medication Reconciliation: buPROPion SR [Wellbutrin SR 150 MG] 150 mg PO DAILY 30 Days #30 tab - Smoking Cessation Smoking Cessation Medication prescribed: No - Antipsychotic Medications Pt discharged on 2 or more routine antipsychotic medications: No
== END 2018-03-16 14:32 | disposition home or self-care (01) | DRG 428 ==
LOC: H.ER 12:30 → H.ERHOLD 16:00 → H.PSYCH 19:00
PROVIDERS: ADMIT Psychiatry & Neurology Psychiatry; ATTEND Psychiatry & Neurology Psychiatry
PROC: GZHZZZZ Group Psychotherapy (ICD-10-PCS; principal; 2018-03-09)
PROC: GZ58ZZZ Individual Psychotherapy, Cognitive-Behavioral (ICD-10-PCS; 2018-03-09)
DX: F60.3 Borderline personality disorder (principal); F84.0 Autistic disorder; F32.9 Major depressive disorder, single episode, unspecified; F60.89 Other specific personality disorders; R45.851 Suicidal ideations; F63.9 Impulse disorder, unspecified; L98.8 Other specified disorders of the skin and subcutaneous tissue

== ENCOUNTER 2018-10-28 03:46 | Emergency (ER) | payer MEDICAID ==
[2018-10-28 03:46] VITALS: BMI 26.1
[2018-10-28 04:01] VITALS: BP 123/74; PULSE 77; RESP 16; TEMP 98.7; O2SAT 98
[2018-10-28 04:51] LABS: BASO % 0.4 % (0.0-2.0); EOS # 0.2 K/uL (0.0-0.7); EOS % 2.1 % (0.0-4.0); HEMOGLOBIN 14.4 g/dL (12.0-18.0); LYMPH # 3.3 K/uL (1.0-4.3); LYMPH % 37.3 % (20.0-40.0); MEAN CELL VOLUME 84.8 fl (80.0-94.0); MEAN CORPUSCULAR HEMOGLOBIN 29.4 pg (27.0-31.0); MEAN CORPUSCULAR HGB CONC 34.6 g/dL (33.0-37.0); MEAN PLATELET VOLUME 7.2 fl (7.2-11.7); MONO # 0.7 K/uL (0.0-0.8); MONO % 8.3 % (0.0-10.0); NEUT # 4.6 K/uL (1.8-7.0); NEUT % 51.9 % (50.0-75.0); NRBC % 0.2 % (0.0-0.0); RBC 4.89 Mil/uL (4.40-5.90); RED CELL DISTRIBUTION WIDTH 12.5 % (11.5-14.5); WHITE BLOOD COUNT 8.8 K/uL (4.8-10.8)
[2018-10-28 04:56] LABS: URINE BACTERIA RARE (<OCC); URINE BILIRUBIN NEGATIVE (NEGATIVE); URINE BLOOD NEGATIVE (NEGATIVE); URINE CLARITY CLEAR (Clear); URINE COLOR YELLOW (YELLOW); URINE GLUCOSE (UA) NEG (NEGATIVE); URINE LEUKOCYTE ESTERASE NEG Leu/uL (Negative); URINE PROTEIN NEGATIVE (NEGATIVE); URINE UROBILINOGEN 0.2-1.0 mg/dL (0.2-1.0)
[2018-10-28 05:02] LABS: ACETAMINOPHEN < 10.0 ug/ml (10.0-30.0); BLOOD UREA NITROGEN 18 mg/dl (9-20); CALCIUM 9.4 mg/dL (8.4-10.2); GFR NON-AFRICAN AMERICAN > 60; SALICYLATE < 1.0 mg/dl
[2018-10-28 05:10] LABS: BARBITURATES, UR NEGATIVE (NEGATIVE); BENZODIAZEPINES, UR NEGATIVE (NEGATIVE); OPIATES, UR NEGATIVE (NEGATIVE); PHENCYCLIDINE, UR NEGATIVE (NEGATIVE)
--- NOTE | 2018-10-28 05:11 | ED PDOC ---
HPI: Psych/Substance Abuse Time Seen by Provider: 10/28/18 03:52 Chief Complaint (Nursing): Psychiatric Evaluation Chief Complaint (Provider): Psychiatric Evaluation History Per: Patient History/Exam Limitations: no limitations Associated Symptoms: Depression, Suicidal Thoughts Additional Complaint(s): 18 y/o male with history of depression and borderling personality disorder presents to the ED for psychiatric evaluation. Patient admits to wanting to self-harm by cutting. When asked if he is suicidal patient responds "maybe." He denies any drugs or alcohol. He also denies homicidal ideation. He has no other complaints. Past Medical History Reviewed: Historical Data Vital Signs: Last Vital Signs Temp 98.7 F 10/28/18 03:52 Pulse 77 10/28/18 03:52 Resp 16 10/28/18 03:52 BP 123/74 10/28/18 03:52 Pulse Ox 98 10/28/18 03:52 - Medical History PMH: Anxiety, Depression, Personality Disorder Denies: Diabetes, Hepatitis, HIV, HTN, Chronic Kidney Disease, Seizures, Sexually Transmitted Disease - Family History Family History: States: Unknown Family Hx - Immunization History Hx Tetanus Toxoid Vaccination: No - Home Medications Home Medications: Ambulatory Orders Medication Instructions Recorded buPROPion SR [Wellbutrin SR 150 MG] 150 mg PO DAILY 30 Days #30 tab 03/16/18 - Allergies Allergies/Adverse Reactions: Allergies Allergy/AdvReac Type Severity Reaction Status Date / Time No Known Allergies Allergy Verified 03/09/18 12:52 Review of Systems ROS Statement: Except As Marked, All Systems Reviewed And Found Negative Psych: Positive for: Suicidal ideation (possible) Physical Exam - Reviewed Nursing Documentation Reviewed: Yes Vital Signs Reviewed: Yes - Physical Exam Appears: Positive for: Well, Non-toxic, No Acute Distress Head Exam: Positive for: ATRAUMATIC, NORMAL INSPECTION, NORMOCEPHALIC Skin: Positive for: Normal Color, Warm, DRY Eye Exam: Positive for: EOMI, Normal appearance, PERRL ENT: Positive for: Normal ENT Inspection Neck: Positive for: Normal, Painless ROM Cardiovascular/Chest: Positive for: Regular Rate, Rhythm. Negative for: Murmur Respiratory: Positive for: Normal Breath Sounds. Negative for: Respiratory Distress Gastrointestinal/Abdominal: Positive for: Normal Exam, Soft. Negative for: Tenderness Back: Positive for: Normal Inspection Extremity: Positive for: Normal ROM. Negative for: Pedal Edema, Deformity Neurological/Psych: Positive for: Awake, Alert, Normal Tone, Mood/Affect (strange affect; talks very quietly, withdrawn). Negative for: Motor/Sensory Deficits - Laboratory Results Result Diagrams: 10/28/18 04:35 10/28/18 04:35 Lab Results: Urine Color Yellow (YELLOW) 10/28/18 04:35 Urine Clarity Clear (Clear) 10/28/18 04:35 Urine pH 7.0 (5.0-8.0) 10/28/18 04:35 Ur Specific [place] 1.026 (1.003-1.030) 10/28/18 04:35 Urine Protein Negative mg/dL (NEGATIVE) 10/28/18 04:35 Urine Glucose (UA) Neg mg/dL (NEGATIVE) 10/28/18 04:35 Urine Ketones Negative mg/dL (NEGATIVE) 10/28/18 04:35 Urine Blood Negative (NEGATIVE) 10/28/18 04:35 Urine Nitrate Negative (NEGATIVE) 10/28/18 04:35 Urine Bilirubin Negative (NEGATIVE) 10/28/18 04:35 Urine Urobilinogen 0.2-1.0 mg/dL (0.2-1.0) 10/28/18 04:35 Ur Leukocyte Esterase Neg Kaushik/uL (Negative) 10/28/18 04:35 Urine RBC (Auto) 3 /hpf (0-3) 10/28/18 04:35 Urine Microscopic WBC < 1 /hpf (0-5) 10/28/18 04:35 Urine Bacteria Rare (<OCC) 10/28/18 04:35 - ECG O2 Sat by Pulse Oximetry: 98 (RA) Pulse Ox Interpretation: Normal Medical Decision Making Medical Decision Making: Time: 04:25 A/P: 18 y/o male with depression. Will need screening by crisis. * Crisis evaluation * 1:1 observation * Labs 06:15 Crisis cleared patient with diagnosis of depression by Dr. Choudhury. Patient is stable for discharge home. Scribe Attestation: Documented by Madi Garcia acting as a scribe for Kurtis Espinosa MD. Provider Scribe Attestation: All medical record entries made by the Scribe were at my direction and personally dictated by me. I have reviewed the chart and agree that the record accurately reflects my personal performance of the history, physical exam, medical decision making, and the department course for this patient. I have also personally directed, reviewed, and agree with the discharge instructions and disposition. Disposition - Clinical Impression Clinical Impression: Depression - Patient ED Disposition Is Patient to be Admitted: No - Disposition Disposition: Routine/Home Disposition Time: 06:15 Condition: IMPROVED Additional Instructions: RODNEY FERGUSON, thank you for letting us take care of you today. Your provider was Kurtis Espinosa MD and you were treated for PSYCH EVAL. The emergency medical care you received today was directed at your acute symptoms. If you were pre scribed any medication, please fill it and take as directed. It may take several days for your symptoms to resolve. Return to the Emergency Department if your symptoms worsen, do not improve, or if you have any other problems. Please contact your doctor or call one of the physicians/clinics you have been referred to that are listed on the Patient Visit Information form that is included in your discharge packet. Bring any paperwork you were given at discharge with you along with any medications you are taking to your follow up visit. Our treatment cannot replace ongoing medical care by a primary care provider outside of the emergency department. Thank you for allowing the [facility] team to be part of your care today. If you had an X-Ray or CT scan: A Radiologist will review the ED reading if any change in treatment is needed we will contact you. If you had a blood, urine, or wound culture: It will take several days for the results, if any change in treatment is needed we will contact you. If you had an STI test: It will take 48 hours for the results. Please call after 1 week if you have not heard back. Instructions: Depression Forms: [employer] (Slovak)
== END 2018-10-28 07:01 | disposition home or self-care (01) ==
LOC: H.ER 03:46
DX: F32.9 Major depressive disorder, single episode, unspecified (principal); F41.9 Anxiety disorder, unspecified

== ENCOUNTER 2018-10-31 16:06 | Emergency (ER) | payer MEDICAID ==
[2018-10-31 16:06] VITALS: BMI 26.1
[2018-10-31 16:14] VITALS: O2SAT 98
[2018-10-31] MEDS ORDERED: Sodium Chloride 0.9% 1,000 ML IV STA (16:23)
[2018-10-31] MEDS ORDERED: Iohexol 240 (50 ml) PO ONE (17:32)
[2018-10-31 17:37] LABS: BASO % 0.2 % (0.0-2.0); EOS % 0.3 % (0.0-4.0); HEMOGLOBIN 13.4 g/dL (12.0-18.0); LYMPH # 0.5 K/uL (1.0-4.3); LYMPH % 5.8 % (20.0-40.0); MEAN CELL VOLUME 85.7 fl (80.0-94.0); MEAN CORPUSCULAR HEMOGLOBIN 29.2 pg (27.0-31.0); MEAN CORPUSCULAR HGB CONC 34.1 g/dL (33.0-37.0); MEAN PLATELET VOLUME 7.1 fl (7.2-11.7); MONO # 0.4 K/uL (0.0-0.8); MONO % 4.4 % (0.0-10.0); NEUT # 7.7 K/uL (1.8-7.0); NEUT % 89.3 % (50.0-75.0); PLATELET COUNT 188 K/uL (130-400); RBC 4.57 Mil/uL (4.40-5.90); RED CELL DISTRIBUTION WIDTH 12.7 % (11.5-14.5); WHITE BLOOD COUNT 8.6 K/uL (4.8-10.8)
[2018-10-31 17:47] LABS: INR 1.1; PROTHROMBIN TIME 12.1 Seconds (9.8-13.1)
[2018-10-31 17:50] LABS: PARTIAL THROMBOPLASTIN TIME 26.8 Seconds (25.6-37.1)
[2018-10-31 17:52] LABS: ALB/GLOB RATIO 1.7 (1.0-2.1); ALBUMIN 4.1 g/dL (3.5-5.0); ALT/SGPT 22 U/L (21-72); AST/SGOT 22 U/L (17-59); BLOOD UREA NITROGEN 17 mg/dl (9-20); CALCIUM 9.3 mg/dL (8.4-10.2); GFR NON-AFRICAN AMERICAN > 60
--- NOTE | 2018-10-31 17:55 | ED PDOC ---
HPI: Abdomen Time Seen by Provider: 10/31/18 16:22 Chief Complaint (Nursing): Abdominal Pain Chief Complaint (Provider): Abdominal Pain History Per: Patient History/Exam Limitations: no limitations Onset/Duration Of Symptoms: Hrs (8) Current Symptoms Are (Timing): Still Present Location Of Pain/Discomfort: Diffuse, RLQ Quality Of Discomfort: "Pain" Associated Symptoms: Vomiting, Diarrhea Additional Complaint(s): 18 year old male with a history of bipolar disorder and depression presents to [facility] ED with abdominal pain since 09:00, about 8 hours ago, associated with diarrhea and vomiting. Patient reports pain is now also radiating to his RLQ and is associated with decreased urine output, poor appetite and fever. Unrelated to physical complaints, patient states he has been having suicidal thoughts. He denies other complaints. PMD: Dr. Manisha Maciel Past Medical History Reviewed: Historical Data, Nursing Documentation, Vital Signs Vital Signs: Last Vital Signs Temp 100.8 F H 10/31/18 17:02 Pulse 118 H 10/31/18 16:09 Resp 16 10/31/18 16:09 BP 122/73 10/31/18 16:09 Pulse Ox 98 10/31/18 16:09 - Medical History PMH: Anxiety, Bipolar Disorder, Depression, Personality Disorder Denies: Diabetes, Hepatitis, HIV, HTN, Chronic Kidney Disease, Seizures, Sexually Transmitted Disease - Surgical History Surgical History: No Surg Hx - Family History Family History: States: Unknown Family Hx - Social History Current smoker - smoking cessation education provided: No - Immunization History Hx Tetanus Toxoid Vaccination: No - Home Medications Home Medications: Ambulatory Orders Medication Instructions Recorded buPROPion SR [Wellbutrin SR 150 MG] 150 mg PO DAILY 30 Days #30 tab 03/16/18 - Allergies Allergies/Adverse Reactions: Allergies Allergy/AdvReac Type Severity Reaction Status Date / Time No Known Allergies Allergy Verified 10/31/18 16:09 Review of Systems ROS Statement: Except As Marked, All Systems Reviewed And Found Negative Constitutional: Positive for: Fever, Other (poor appetite). Negative for: Chills Gastrointestinal: Positive for: Vomiting, Abdominal Pain, Diarrhea Genitourinary Male: Positive for: Other (decreased urine output). Negative for: Dysuria, Frequency, Incontinence Physical Exam - Reviewed Nursing Documentation Reviewed: Yes Vital Signs Reviewed: Yes - Physical Exam Appears: Positive for: In Acute Distress (mild acute distress; patient is febrile) Head Exam: Positive for: ATRAUMATIC, NORMAL INSPECTION, NORMOCEPHALIC Skin: Positive for: Normal Color, Warm, Dry. Negative for: Rash Eye Exam: Positive for: EOMI, Normal appearance, PERRL ENT: Positive for: Pharynx Is (clear), Other (dry mucous membranes) Neck: Positive for: Normal, Painless ROM, Supple Cardiovascular/Chest: Positive for: Tachycardia (regular rhythm) Respiratory: Positive for: Normal Breath Sounds. Negative for: Respiratory Distress Gastrointestinal/Abdominal: Positive for: Soft, Tenderness (to bilateral lower quadrants, worse on right than left, as well as suprapubic region). Negative for: Mass, Guarding, Rebound Back: Positive for: Normal Inspection. Negative for: Decreased ROM Extremity: Positive for: Normal ROM (x 4). Negative for: Deformity Neurological/Psych: Positive for: Awake, Alert, Normal Tone, Mood/Affect (flat affect and depressed mood). Negative for: Motor/Sensory Deficits - Laboratory Results Result Diagrams: 10/31/18 17:14 10/31/18 17:14 Lab Results: PT 12.1 Seconds (9.8-13.1) 10/31/18 17:14 INR 1.1 10/31/18 17:14 - ECG O2 Sat by Pulse Oximetry: 98 (RA) Pulse Ox Interpretation: Normal Medical Decision Making Medical Decision Makin:22 Impression: abdominal pain Differential diagnoses include but are not limited to: appendicitis, colitis and enteritis Initial Plan: --Blood type and screen --CBC --CMP --lactic acid --PTT --PT --Blood cx --Urine cx --NS IV 1,000 mls --Tylenol 975 mg PO --UA --1:1 observation 17:32 --CT Abdomen Pelvis with contrast --Omnipaque 50 ml PO Scribe Attestation: Documented by Demetrice Covarrubias, acting as a scribe for Keesha Argueta MD. Provider Scribe Attestation: All medical record entries made by the Scribe were at my direction and personally dictated by me. I have reviewed the chart and agree that the record accurately reflects my personal performance of the history, physical exam, medical decision making, and the department course for this patient. I have also personally directed, reviewed, and agree with the discharge instructions and disposition. Disposition - Clinical Impression Clinical Impression: Abdominal discomfort, Depression - Disposition Disposition: Transfer of Care Disposition Time: 00:00 Condition: FAIR Forms: [employer] (Eritrean) Print Language: IRISH Patient Signed Over To: Dania Pandya Handoff Comments: Pending CT scan, reassessment, and final ER disposition
[2018-10-31] MEDS ORDERED: Sodium Chloride 0.9% 50 ML IV ONE ×2 (19:48→23:10)
[2018-10-31] MEDS ORDERED: Iohexol 300 100 ML IJ ONE (19:48)
[2018-10-31 19:51] LABS: BANDS 5 % (0-2); EOSINOPHIL 1 % (0-7); LYMPHOCYTE 7 % (20-50); MONOCYTE 6 % (0-10); NEUTROPHIL 81 % (42-75); PLATELET ESTIMATE NORMAL (NORMAL); TOTAL CELLS COUNTED 100
[2018-10-31 19:52] LABS: HYPOCHROMIC SLIGHT; TOXIC GRANULATION PRESENT
[2018-10-31] MEDS ORDERED: Iohexol 240 (50 ml) ONE (20:02)
[2018-10-31 20:12] LABS: URINE BILIRUBIN NEGATIVE (NEGATIVE); URINE BLOOD NEGATIVE (NEGATIVE); URINE CLARITY CLEAR (Clear); URINE COLOR YELLOW (YELLOW); URINE GLUCOSE (UA) NEG (NEGATIVE); URINE LEUKOCYTE ESTERASE NEG Leu/uL (Negative); URINE PROTEIN NEGATIVE (NEGATIVE); URINE UROBILINOGEN 0.2-1.0 mg/dL (0.2-1.0)
--- NOTE | 2018-11-01 00:20 | ED PDOC ---
- Laboratory Results Result Diagrams: 10/31/18 17:14 10/31/18 17:14 Lab Results: PT 12.1 Seconds (9.8-13.1) 10/31/18 17:14 INR 1.1 10/31/18 17:14 APTT 26.8 Seconds (25.6-37.1) 10/31/18 17:14 Total Bilirubin 0.3 mg/dl (0.2-1.3) 10/31/18 17:14 AST 22 U/L (17-59) 10/31/18 17:14 ALT 22 U/L (21-72) 10/31/18 17:14 Alkaline Phosphatase 67 U/L (38-126) 10/31/18 17:14 Total Protein 6.5 G/DL (6.3-8.2) 10/31/18 17:14 Albumin 4.1 g/dL (3.5-5.0) 10/31/18 17:14 Globulin 2.4 gm/dL (2.2-3.9) 10/31/18 17:14 Albumin/Globulin Ratio 1.7 (1.0-2.1) 10/31/18 17:14 Urine Color Yellow (YELLOW) 10/31/18 19:30 Urine Clarity Clear (Clear) 10/31/18 19:30 Urine pH 6.0 (5.0-8.0) 10/31/18 19:30 Ur Specific [place] 1.011 (1.003-1.030) 10/31/18 19:30 Urine Protein Negative mg/dL (NEGATIVE) 10/31/18 19:30 Urine Glucose (UA) Neg mg/dL (NEGATIVE) 10/31/18 19:30 Urine Ketones Negative mg/dL (NEGATIVE) 10/31/18 19:30 Urine Blood Negative (NEGATIVE) 10/31/18 19:30 Urine Nitrate Negative (NEGATIVE) 10/31/18 19:30 Urine Bilirubin Negative (NEGATIVE) 10/31/18 19:30 Urine Urobilinogen 0.2-1.0 mg/dL (0.2-1.0) 10/31/18 19:30 Ur Leukocyte Esterase Neg Kaushik/uL (Negative) 10/31/18 19:30 Urine RBC (Auto) < 1 /hpf (0-3) 10/31/18 19:30 Urine Microscopic WBC 1 /hpf (0-5) 10/31/18 19:30 - ECG O2 Sat by Pulse Oximetry: 98 (RA) Pulse Ox Interpretation: Normal Medical Decision Making Medical Decision Making: Time: 00:00 Patient care endorsed from Dr. Argueta to provider pending CT and crisis evaluation. 00:33 CT FINDINGS: LUNG BASES: The lung bases appear clear. No pleural effusions are seen. LIVER: Unremarkable. GALLBLADDER AND BILE DUCTS: The gallbladder appears within normal limits. No radioopaque gallstones are seen. No biliary ductal dilatation is evident. PANCREAS: Unremarkable. SPLEEN: Unremarkable. ADRENAL GLANDS: Unremarkable. KIDNEYS, URETERS, AND BLADDER: The kidneys appear within normal limits. There is no hydronephrosis or h ydroureter. No urinary calculi are seen. The urinary bladder appeared normal in size and configuration. STOMACH AND BOWEL: Unremarkable appearance of the stomach. No evidence of bowel obstruction. Mild mucosal wall thickening is seen in the jejunum with fluid in the lumen compatible with jejunitis. Infectious or inflammatory etiologies are thought most likely. APPENDIX: No evidence of acute appendicitis on CT examination. PERITONEUM: No free fluid. No free air. LYMPH NODES: No lymphadenopathy is evident. REPRODUCTIVE: Unremarkable as visualized. VASCULATURE: No evidence of abdominal aortic aneurysm. BONES: No aggressive appearing osseous lesion. No acute osseous pathology evident. IMPRESSION: 1. Evidence of jejunitis. 01:35 Medically optimized for evaluation by crisis. 03:38 Patient cleared by crisis and will be discharged home. Diagnosis is depression by Dr. Dorman. Patient advised to follow up with PMD. 03:49 Patient was to be discharged however on reevaluation patient is tachycardic, febrile, and blood pressure dropped. Patient will be given Tylenol, additional fluids and will get surgical consult. Discharge cancelled for further evaluation and will wait for patient to stabilize. 05:52 Patient's flu was negative. Vitals are improved and patient will be discharged home. Patient is to take Tylenol as needed for fever and pain. Patient will follow up with his PMD. Return parameters discussed. Scribe Attestation: Documented by Madi Garcia, acting as a scribe for Dania Pandya MD. Provider Scribe Attestation: All medical record entries made by the Scribe were at my direction and personally dictated by me. I have reviewed the chart and agree that the record accurately reflects my personal performance of the history, physical exam, medical decision making, and the department course for this patient. I have also personally directed, reviewed, and agree with the discharge instructions and disposition. Disposition - Clinical Impression Clinical Impression: Abdominal discomfort, Depression - Disposition Disposition: Routine/Home Disposition Time: 05:52 Condition: IMPROVED Additional Instructions: Follow up with primary medical doctors and counselors for further management of depression. Take Maalox or other over the counter medication for abdominal discomfort. Return to the emergency department if symptoms worsen or if new symptoms develop. Instructions: Acute Abdomen (Belly Pain), Adult (DC), When You Have Depression and Another Health Problem Forms: [employer] (Hungarian) Print Language: LATVIAN
[2018-11-01] MEDS ORDERED: Sodium Chloride 0.9% 1,000 ML IV STA (03:49)
[2018-11-01 05:52] VITALS: BP 102/86; PULSE 91; RESP 16; TEMP 100.4
--- NOTE | 2018-11-01 10:42 | CT ---
Date of service: 10/31/2018 PROCEDURE: CT Abdomen and Pelvis with contrast HISTORY: Abdominal pain COMPARISON: 02/06/2018. TECHNIQUE: CT scan of the abdomen and pelvis was performed after administration of intravenous contrast. Oral contrast was administered. Coronal and sagittal reformatted images were obtained. Contrast dose: 90 mL Omnipaque 300 Radiation dose: Total exam DLP = 225.07 mGy-cm. This CT exam was performed using one or more of the following dose reduction techniques: Automated exposure control, adjustment of the mA and/or kV according to patient size, and/or use of iterative reconstruction technique. FINDINGS: LOWER THORAX: The visualized lungs are clear. LIVER: Normal in size with homogeneous enhancement. No gross lesion or ductal dilatation. GALLBLADDER AND BILE DUCTS: Well distended. No calcified gallstones, wall thickening or pericholecystic fluid. PANCREAS: Normal in size with homogeneous enhancement. No gross lesion or ductal dilatation. SPLEEN: Normal in size and appearance. ADRENALS: No discrete nodule. KIDNEYS AND URETERS: Normal in size with homogeneous enhancement. No hydronephrosis. No solid mass. VASCULATURE: No aortic aneurysm. There are no aortic atherosclerotic calcifications or mural plaque present. BOWEL: The small bowel loops are normal in caliber. There is moderate gaseous distension of the transverse colon and left hemicolon. There is also gas in the rectum.. No bowel wall thickening or obstruction. APPENDIX: Normal appendix. PERITONEUM: No free fluid. No free air. LYMPH NODES: No enlarged lymph nodes. BLADDER: Well distended and normal in appearance. REPRODUCTIVE: The uterus is normal in size. BONES: No acute fracture. Within normal limits for the patient's age. OTHER FINDINGS: None. IMPRESSION: No acute abdominal or pelvic abnormality. Mild gaseous distension of the transverse colon and left hemicolon. A preliminary report was provided by [employer].
== END 2018-11-01 07:45 | disposition home or self-care (01) ==
LOC: H.ER 16:06
DX: R10.31 Right lower quadrant pain (principal); F32.9 Major depressive disorder, single episode, unspecified; F31.9 Bipolar disorder, unspecified; F41.9 Anxiety disorder, unspecified
CPT/HCPCS: 74177; 80053; 81003; 83605; 85025; 85610; 85730; 86850; 86900; 87040; 87086; 87804; 99284; J7030; Q9966; Q9967